=== PATIENT | male | born 1945 | race Caucasian/White ===

== ENCOUNTER 2017-06-29 12:20 | Day surgery (SDC) | payer OTHER, BC ==
[2017-06-28 10:16] VITALS: BMI 25.2
[2017-06-29] MEDS ORDERED: PROPOFOL 20 ML ONE ×2 (13:34)
[2017-06-29 14:29] VITALS: TEMP 98.2
[2017-06-29 15:18] VITALS: BP 130/60; PULSE 74
--- NOTE | 2017-07-02 13:07 | PATH ---
Surgical Pathology Report Patient Name: MEENAKSHI CHRISTIANSON [facility]. Rec. #: [id number] /Age/Gender: 1945 (Age: 71) / M Account: [id number] Location: [facility]-ENDOSCOPY Taken: 06/29/2017 Received: 06/29/2017 Reported: 07/02/2017 Physicians: Fernando Wyman M.D. Specimen(s) Received BX CECAL POLYP Clinical History Preoperative diagnosis: Screening Postoperative diagnosis: AVM, cecal polyp, diverticulosis Final Diagnosis CECUM, POLYP, BIOPSY TUBULAR ADENOMA. Electronically Signed Giana Love M.D. Gross Description Received in formalin, labeled "biopsy cecal polyp" are 3 laurent, irregular portions of soft tissue ranging from 0.2-0.3 cm. in greatest dimension. The specimens are submitted in toto in one cassette. /06/29/201706/29/2017
== END 2017-06-29 15:21 | disposition home or self-care (01) ==
LOC: JASU-ENDO 12:20
PROVIDERS: ATTEND Internal Medicine Gastroenterology
PROC: 0DBH8ZX Excision of Cecum, Via Natural or Artificial Opening Endoscopic, Diagnostic (ICD-10-PCS; principal; 2017-06-29 12:30)
DX: Z12.11 Encounter for screening for malignant neoplasm of colon (principal); Z86.010 Personal history of colon polyps; D12.0 Benign neoplasm of cecum; K57.30 Diverticulosis of large intestine without perforation or abscess without bleeding; K64.8 Other hemorrhoids; K55.20 Angiodysplasia of colon without hemorrhage
CPT/HCPCS: 88305-TC

== ENCOUNTER 2019-01-30 06:12 | Day surgery (SDC) | payer OTHER, BC ==
[2019-01-28 11:30] VITALS: BMI 25.1
[2019-01-30] MEDS ORDERED: PROPOFOL 20 ML ONE ×2 (07:29)
[2019-01-30] MEDS ORDERED: KETOROLAC TROMETHAMINE 30 MG/1 ML VIAL ONE (07:30)
[2019-01-30] MEDS ORDERED: LIDOCAINE HCL/PF 2% SDV 5ML VIAL ONE (07:30)
[2019-01-30] MEDS ORDERED: DEXAMETHASONE SOD PHOSPHATE 4 MG/1 ML VIAL ONE (07:30)
[2019-01-30] MEDS ORDERED: ceFAZolin SODIUM 1 GM VIAL ONE (07:30)
[2019-01-30] MEDS ORDERED: MIDAZOLAM HCL 2 MG/2 ML SINGLE DOSE VIAL ONE (07:30)
[2019-01-30] MEDS ORDERED: SUCCINYLCHOLINE CHLORIDE 200 MG/10 ML SYRINGE ONE (07:30)
[2019-01-30] MEDS ORDERED: ceFAZolin SODIUM 1 GM VIAL IVPB ONE (07:53)
[2019-01-30] MEDS ORDERED: LIDOCAINE HCL 2% JELLY (5 ML/TUBE) ONE (07:54)
[2019-01-30] MEDS ORDERED: LIDOCAINE HCL 1%, 10 MG/ML (20ML VIAL) NR ONE (07:55)
[2019-01-30] MEDS ORDERED: BUPIVACAINE HCL/PF 0.5% (5MG/ML) 10 ML VIAL IJ ONE (07:55)
[2019-01-30] MEDS ORDERED: TRIAMCINOLONE ACET 40MG/1ML VIAL ONE (08:27)
[2019-01-30] MEDS ORDERED: BENZOIN TINCTURE SWABSTICK TP ONE (08:30)
[2019-01-30] MEDS ORDERED: TRIAMCINOLONE ACET 40MG/1ML VIAL IM ONE (08:30)
[2019-01-30] MEDS ORDERED: ONDANSETRON 4 MG/2 ML VIAL IVPUSH PRN (08:58)
[2019-01-30] MEDS ORDERED: oxyCODONE HCL 5 MG TABLET PO PRN ×2 (08:58)
[2019-01-30] MEDS ORDERED: LACTATED RINGERS SOLUTION 1,000 ML IV SCH (09:00)
[2019-01-30 13:41] VITALS: BP 150/64; PULSE 79; TEMP 98.1
--- NOTE | 2019-01-31 18:47 | PATH ---
Surgical Pathology Report Patient Name: MEENAKSHI CHRISTIANSON [facility]. Rec. #: [id number] /Age/Gender: 1945 (Age: 73) / M Account: [id number] Location: [facility] SURGICAL Taken: 01/30/2019 Received: 01/30/2019 Reported: 01/31/2019 Physicians: Kurtis Ho DPM Specimen(s) Received SOFT TISSUE MASS OF RIGHT FOOT Clinical History Ganglion cyst right foot Final Diagnosis SOFT TISSUE MASS, FOOT, RIGHT, EXCISION: GANGLION CYST. Electronically Signed Giana Love M.D. Gross Description Received in formalin labeled "soft tissue mass of right foot" is a white-laurent, fibromembranous tissue measuring 2 x 1 x 1 cm. The outer surface is inked in blue. A 1 cm mucoid cyst is identified. The specimen is serially sectioned and entirely submitted in one cassette. MLSZ/01/30/2019 layla/01/30/2019
--- NOTE | 2019-02-17 00:09 | OP ---
DATE OF OPERATION: 01/30/2019 PREOPERATIVE DIAGNOSIS: Ganglion cyst right foot with pain. POSTOPERATIVE DIAGNOSIS: Ganglion cyst right foot with pain. PROCEDURE: Excision of ganglion cyst. SURGEON: Kurtis Ho DPM SENIOR COURT OFFICE ASSISTANT: Chase Jenkins DPM DESCRIPTION OF PROCEDURE: After noting all preoperative vital signs within normal limits and after the surgical consent was signed and witnessed, the patient was brought to the OR and placed on the table in the supine position. An IV line had been started prior to the patient coming to the OR. Once the patient was on the table, a well-padded ankle tourniquet was applied to the right ankle. The foot was then prepped and draped in the usual sterile fashion. At this time, utilizing a sterile Doppler, the dorsalis pedis artery was identified and marked so as not to disrupt it's flow. Attention was then directed to the palpable ganglion cyst. At this time, the foot was anesthetized. At this time, the incision was created over the ganglion cyst in a linear fashion. This incision was deepened using sharp and blunt dissection. All unavoidable vessels were ligated in the usual fashion. Once the ganglion cyst was identified, the surrounding tissues were explored to see where the root of the cyst came from. Once the root was identified, utilizing sharp and blunt dissection, the ganglion cyst was resected. Once it was resected, it was noted that there was some jelly-like material. This jelly-like material was cultured intraoperatively and sent down for microbiology. The area was then explored again. It was noted that the ganglion cyst started from the tendon sheath. There was no exostosis identified at this time. The tendon sheath was repaired utilizing 3-0 Vicryl in a simple interrupted suture fashion. A flush had been done with copious amounts of sterile saline. Subcutaneous tissues were then closed using 3-0 Vicryl and 4-0 Vicry. Skin was then closed using 5-0 Vicryl in a subcuticular fashion. Tincture of Benzoin and Steri- Strips were then applied. A postoperative injection was put into place. Betadine-soaked Adaptic, dry sterile gauze, and a Ulysses dressing were then applied. The tourniquet was deflated and capillary filling time was instantaneous to all 5 toes of the right foot. Patient tolerated the anesthesia and the procedure well. Patient returned to the recovery room with vital signs stable and vascular status intact. ALYSSIA Alves/[id number] MTDMikala
== END 2019-01-30 12:30 | disposition home or self-care (01) ==
LOC: JASU-SURG 06:12
PROVIDERS: ATTEND Podiatrist Foot Surgery
PROC: 0LBV0ZZ Excision of Right Foot Tendon, Open Approach (ICD-10-PCS; principal; 2019-01-30 07:30)
DX: M67.471 Ganglion, right ankle and foot (principal)
CPT/HCPCS: 73630-TC-RT-FY; 87070; 87075; 87205; 88304-TC; 94760

== ENCOUNTER 2022-10-20 04:24 | Day surgery (SDC) | payer OTHER, BC ==
[2022-10-18 10:43] VITALS: BMI 23.6
[2022-10-20 11:17] VITALS: TEMP 98
[2022-10-20 11:45] VITALS: BP 129/60; PULSE 79; RESP 17
== END 2022-10-20 12:24 | disposition home or self-care (01) ==
LOC: JASU-ENDO 04:24
PROVIDERS: ATTEND Internal Medicine Gastroenterology
PROC: 0DBP8ZX Excision of Rectum, Via Natural or Artificial Opening Endoscopic, Diagnostic (ICD-10-PCS; principal; 2022-10-20 11:00)
DX: Z12.11 Encounter for screening for malignant neoplasm of colon (principal); D12.8 Benign neoplasm of rectum; K55.20 Angiodysplasia of colon without hemorrhage; Z86.010 Personal history of colon polyps; Z80.0 Family history of malignant neoplasm of digestive organs
CPT/HCPCS: 88305-TC